=== PATIENT | male | born 1975 | race Two or more races ===

== ENCOUNTER 2023-07-25 11:48 | Emergency (ER) | payer OTHER ==
[~2023-07-25] VITALS: Ht 165.1 cm; Wt 79.4 kg
[2023-07-25 13:53] LABS: HEMATOCRIT 44.9 % (39.0-48.0); HEMOGLOBIN 15.5 g/dL (13-16.00); MEAN CELL VOLUME 94.1 fL (80.0-100.00); MEAN CORPUSCULAR HEMOGLOBIN 32.6 pg (27.00-32.0); MEAN CORPUSCULAR HGB CONC 34.6 g/dl (32.0-36.0); PLATELET COUNT 170 K/uL (150-450); RED BLOOD COUNT 4.77 M/uL (4.00-6.00); RED CELL DISTRIBUTION WIDTH 13.5 % (11.5-14.5)
[2023-07-25 14:26] LABS: CALCIUM 9.4 mg/dL (8.5-10.1); CREATININE SERUM 0.93 mg/dL (0.70-1.30); GFR 86.36; POTASSIUM 4.6 mEq/L (3.5-5.1)
== END 2023-07-25 16:05 | disposition home or self-care (01) ==
LOC: ER 11:49
PROVIDERS: Emergency Medicine
DX: I10 Essential (primary) hypertension (principal)

== ENCOUNTER 2023-11-22 14:22 | Emergency (ER) | payer OTHER ==
[~2023-11-22] VITALS: Ht 165.1 cm; Wt 79.4 kg
[2023-11-22] MEDS ORDERED: METOPROLOL SUCC50 MG (15:11)
== END 2023-11-22 18:52 | disposition home or self-care (01) ==
LOC: ER 14:23
DX: I10 Essential (primary) hypertension (principal); R53.81 Other malaise